=== PATIENT | female | born 1995 | race Caucasian/White ===

== ENCOUNTER 2017-02-03 09:54 | Emergency (ER) | payer OTHER ==
[2017-02-03 10:27] VITALS: BP 124/73
--- NOTE | 2017-02-03 10:52 | UC ---
UC General HPI - HPI Summary HPI Summary: Pt presents to urgent care with her BF mom with whom she lives. Pt with multiple complaints. PT states has been getting frontal JURADO x 2 months, but now with increased frequency. Pt reports increased urinary frequency and bloating. Pt reports fatigue and mild low back pain. Pt concerned she may be - is sexually active and has implenon placed 2 years ago. No fevers, chills, rash. No cp, sob, abd pain. No nausea, vomiting. Pt with intermittent diarrhea. No blood, no black No vaginal discharge. Occasional bloody spotting - since Implenon. Pt has been taking Naproxyn for JURADO with good relief. Pt denies trauma. No ear, throat or sinus pain. Pt states saw PWP in October for annual exam. Pt has not been back since symptoms have been developing over past 1-2 months. No tck exposure. No others with same sx. Has not extablished with local shipyard helper Pt does not has been cutting back on caffeine over last few months Does not work with chemicals Pt's medications reviewed at this visit - History of Current Complaint Chief Complaint: UCAbdominalPain Stated Complaint: HEADACHE, BURNING URINATION AND ABDOMINAL PAIN Time Seen by Provider: 02/03/17 10:21 Hx Obtained From: Patient, Family/Chauffeur Hx Last Menstrual Period: 01/19/17 Onset/Duration: Gradual Onset Onset Severity: Mild Current Severity: None Associated Signs & Symptoms: Positive: Diarrhea. Negative: Cough, Chest Pain, Decreased Responsiveness, Dizziness, Dysuria, Decreased Oral Intake - Allergy/Home Medications Allergies/Adverse Reactions: Allergies Allergy/AdvReac Type Severity Reaction Status Date / Time No Known Allergies Allergy Verified 02/03/17 10:27 Home Medications: Home Medications NK [No Home Medications Reported] 02/03/17 [History Confirmed 02/03/17] PMH/Surg Hx/FS Hx/Imm Hx Previously Healthy: Yes - Surgical History Surgical History: Yes Surgery Procedure, Year, and Place: right shoulder x2 - Family History Known Family History: Positive: Other - breast and gastric CA - Social History Occupation: Employed Part-time Lives: With Family Alcohol Use: Rare Substance Use Type: None Smoking Status (MU): Never Smoked Tobacco Review of Systems Constitutional: Fatigue Skin: Negative Eyes: Negative ENT: Negative Respiratory: Negative Cardiovascular: Negative Gastrointestinal: Abdominal Pain - bloating Genitourinary: Frequency Motor: Other - back pain Neurovascular: Negative Musculoskeletal: Negative Neurological: Headache Psychological: Negative All Other Systems Reviewed And Are Negative: Yes Physical Exam Triage Information Reviewed: Yes Appearance: Well-Appearing, No Pain Distress, Well-Nourished Vital Signs: Initial Vital Signs Temp 98.5 F 02/03/17 10:17 Pulse 78 02/03/17 10:17 Resp 20 02/03/17 10:17 BP 124/73 02/03/17 10:17 Pulse Ox 100 02/03/17 10:17 Eye Exam: Normal Eyes: Positive: Conjunctiva Clear ENT Exam: Normal ENT: Positive: Normal ENT inspection, Hearing grossly normal, Pharynx normal, TMs normal Dental Exam: Normal Neck exam: Normal Neck: Positive: Supple, Nontender, No Lymphadenopathy, Other: - no thyromegaly Respiratory Exam: Normal Respiratory: Positive: Chest non-tender, Lungs clear, Normal breath sounds Cardiovascular Exam: Normal Cardiovascular: Positive: RRR, No Murmur, Pulses Normal Abdominal Exam: Normal Abdomen Description: Positive: Nontender, No Organomegaly, Soft, Other: - No cva b/l Bowel Sounds: Positive: Present Musculoskeletal Exam: Normal Musculoskeletal: Positive: Strength Intact Neurological Exam: Normal Neurological: Positive: Alert, Muscle Tone Normal, Other: - full AROm ext x 4 + gross b/l sensation x 4 Psychological Exam: Normal Psychological: Positive: Normal Response To Family Skin Exam: Normal Course/Dx - Course Course Of Treatment: Pt presents with multiple complaints - pt with intermittent JURADO, bloating, and urinary frequency. Pt concerned may be . urine and hcg unremarkable. I had a long discussion with pt regarding symptoms and limitations of urgent care. Pt with stable VS and non concerning exam. will order labs. f/u with pcp. referral to shipyard helper for reproductive health. return precautions. APAP with Naproxyn. hydration. pt and SO mom comfortable and in agreement with plan. questions answered - Differential Dx - Multi-Symptom Provider Diagnoses: fatigue. headache. urinary frequency Discharge - Discharge Plan Condition: Stable Disposition: HOME Patient Education Materials: Dehydration (ED), General Headache (ED), Fatigue ( ED) Referrals: Dwain Guerrero MD [Medical Doctor] - As Soon As Possible Clifton Gutierrez MD [Medical Doctor] - (Call to schedule a follow-up appointment) Additional Instructions: - stay well hydrated. Drink plenty of non-alcoholic, non-caffinated beverages - for every caffinated beverage, drink water - Okay to take Tylenol every 6 hours for pain - Okay to take Naproxyn OR ibuprofen (Motrin, Advil) every 6 hours for pain - Contact your primary doctor in [place] to schedule a follow-up appointment to review today's lab work and discuss your symptoms - You should establish with a shipyard helper doctor- you have been provided the name of the shipyard helper doctor industrial refrigeration mechanic today - call to schedule - Call your doctor or go to the emergency department with questions or concern -
[2017-02-03 16:10] LABS: Hematocrit 41 % (35-47); Hemoglobin 14.3 g/dl (12.0-16.0); Mean Corpuscular HGB Conc 35 g/dl (31-36); Mean Corpuscular Hemoglobin 29 pg (27-31); Mean Corpuscular Volume 85 fL (80-97); Mean Platelet Volume 9 um3 (7.4-10.4); Red Blood Count 4.87 10^6/ul (4.0-5.4); Red Cell Distribution Width 12 % (10.5-15); White Blood Count 7.8 10^3/ul (3.5-10.8)
[2017-02-03 16:30] LABS: Albumin 4.5 g/dL (3.2-5.2); BUN/Creatinine Ratio 17.1 (8-20); Calcium 9.9 mg/dL (8.6-10.3); EGFR African American 134.6 (>60); EGFR Non-African American 104.6 (>60); Globulin 2.9 g/dL (2-4); Potassium 4.3 mmol/L (3.5-5.0); TSH (Thyroid Stimulating Horm) 1.49 mcIU/mL (0.34-5.60); Total Bilirubin 0.6 mg/dL (0.2-1.0); Total Protein 7.4 g/dL (6.4-8.9)
--- NOTE | 2017-02-04 09:19 | ED ---
Progress - Progress Note Progress Note: CALL PATIENT. CBC/CMP HAVE NO ACUTE CHANGES. IF WORSE GO TO ED. Course/Dx - Course Course Of Treatment: Pt presents with multiple complaints - pt with intermittent JURADO, bloating, and urinary frequency. Pt concerned may be . urine and hcg unremarkable. I had a long discussion with pt regarding symptoms and limitations of urgent care. Pt with stable VS and non concerning exam. will order labs. f/u with pcp. referral to [facility] we[facility] for reproductive health. return precautions. APAP with Naproxyn. hydration. pt and SO mom comfortable and in agreement with plan. questions answered - Diagnoses Provider Diagnoses: Abdominal pain
== END 2017-02-03 11:23 | disposition home or self-care (01) ==
LOC: UCEAST 09:54
DX: R51 Headache (principal); R35.0 Frequency of micturition; R53.83 Other fatigue; Z32.02 Encounter for pregnancy test, result negative
CPT/HCPCS: 36415; 80053; 81003; 83735; 84443; 84702; 85025; 99202; G0463

== ENCOUNTER 2018-03-21 22:54 | Emergency (ER) | payer OTHER ==
[2018-03-22] MEDS ORDERED: Ketorolac INJ* 60 MG/2 ML VIAL IM ONE (01:32)
[2018-03-22] MEDS ORDERED: oxyCODONE/Acetamin 5/325 MG* TAB PO ONE (01:32)
--- NOTE | 2018-03-22 01:53 | ED ---
Lower Extremity - HPI Summary HPI Summary: A 22 y/o female presents to ED c/o right ankle pain reaching 7/10 in severity. As per triage, "Pt states horse fell on rt ankle". According to the patient, around 2100 she rolled her ankle. The pain shot op her left and hurts to touch. - History of Current Complaint Chief Complaint: EDExtremityLower Stated Complaint: RT ANKLE INJURY Time Seen by Provider: 03/22/18 01:21 Hx Obtained From: Patient Hx Last Menstrual Period: 01/19/17 Mechanism Of Injury: Twisted Onset of Pain: Post Accident Onset/Duration: Hours Severity Initially: Moderate Severity Currently: Moderate Pain Intensity: 7 Pain Scale Used: 0-10 Numeric Timing: Constant Location: Is Discrete @ - Right ankle/foot Associated Signs And Symptoms: Positive: Negative Aggravating Factor(s): Movement Alleviating Factor(s): Nothing Able to Bear Weight: No - Allergies/Home Medications Allergies/Adverse Reactions: Allergies Allergy/AdvReac Type Severity Reaction Status Date / Time No Known Allergies Allergy Verified 02/03/17 10:27 PMH/Surg Hx/FS Hx/Imm Hx Endocrine/Hematology History: Denies: Hx Diabetes Cardiovascular History: Denies: Hx Hypertension Respiratory History: Denies: Hx Asthma - Surgical History Surgery Procedure, Year, and Place: right shoulder x2 Infectious Disease History: No Infectious Disease History: Reports: Hx of Known/Suspected MRSA Denies: Traveled Outside the [place] in Last 30 Days - Family History Known Family History: Positive: Other - breast and gastric CA, kidney cancer - Social History Alcohol Use: Rare Substance Use Type: Reports: None Smoking Status (MU): Never Smoked Tobacco Review of Systems Negative: Fever Positive: Other - POSITIVE: Left ankle and foot pain All Other Systems Reviewed And Are Negative: Yes Physical Exam - Summary Physical Exam Summary: VITAL SIGNS: Reviewed. GENERAL: Patient is a well-developed and nourished female who is lying comfortable in the stretcher. Patient is not in any acute respiratory distress. HEAD AND FACE: No signs of trauma. No ecchymosis, hematomas or skull depressions. No sinus tenderness. EYES: PERRLA, EOMI x 2, No injected conjunctiva, no nystagmus. EARS: Hearing grossly intact. Ear canals and tympanic membranes are within normal limits. MOUTH: Oropharynx within normal limits. NECK: Supple, trachea is midline, no adenopathy, no JVD, no carotid bruit, no c- spine tenderness, neck with full ROM. CHEST: Symmetric, no tenderness at palpation LUNGS: Clear to auscultation bilaterally. No wheezing or crackles. CVS: Regular rate and rhythm, S1 and S2 present, no murmurs or gallops appreciated. ABDOMEN: Soft, non-tender. No signs of distention. No rebound no guarding, and no masses palpated. Bowel sounds are normal. EXTREMITIES: FROM in all major joints, no edema, no cyanosis or clubbing. Tenderness of the left foot and left ankle. ROM is secondary to pain. NV intact. NEURO: Alert and oriented x 3. No acute neurological deficits. Speech is normal and follows commands. SKIN: Dry and warm Triage Information Reviewed: Yes Vital Signs On Initial Exam: Initial Vitals Temp Pulse Resp BP Pulse Ox 98.9 F 85 15 119/86 100 03/21/18 23:02 03/21/18 23:02 03/21/18 23:02 03/21/18 23:02 03/21/18 23:02 Vital Signs Reviewed: Yes Procedures - Splinting Right Lower Extremity Location: Applied to R. foot extending from R. foot to proximal leg, Below knee Hand-Made Type: orthoglass Splint: posterior walking Pre-Proc Neuro Vasc Exam: normal Post-Proc Neuro Vasc Exam: normal Diagnostics - Vital Signs Vital Signs Temp Pulse Resp BP Pulse Ox 03/22/18 01:47 16 03/21/18 23:02 98.9 F 85 15 119/86 100 - Laboratory Lab Statement: Any lab studies that have been ordered have been reviewed, and results considered in the medical decision making process. - Radiology ANKLE XR Radiology Interpretation Completed By: ED Physician - Negative. Pending official report. FOOT XR Radiology Interpretation Completed By: ED Physician - No fracture, however, disruption of the ankle mortise. Pending official report. Lower Extremity Course/Dx - Course Course Of Treatment: A 22 y/o female presents to ED c/o right ankle pain reaching 7/10 in severity. A Foot XR revealed to be negative. An Ankle XR revealed no fracture, however, disruption of the ankle mortise. In the ED course , the patient recieved Percocet and Toradol. Patient was splinted. NV exam was intact pre and post. Patient will be discharged with a diagnosis of ankle dislocation. Patient is to follow up with orthopedics today. Patient was instructors for no weight bearing. Patient is agreeable with this plan. - Diagnoses Provider Diagnoses: Ankle dislocation Discharge - Sign-Out/Discharge Documenting (check all that apply): Patient Departure - DISCHARGE - Discharge Plan Condition: Stable Disposition: HOME Patient Education Materials: Ankle Dislocation (ED) Referrals: Lucero So MD [Medical Doctor] - As Soon As Possible Additional Instructions: FOLLOW UP WITH ORTHOPEDICS TODAY. NO WEAR BEARING. RETURN TO ED FOR ANY NEW OR WORSENING SYMPTOMS. - Attestation Statements Document Initiated by Scribe: Yes Documenting Scribe: Hernandez Edmond Provider For Whom Scribe is Documenting (Include Credential): Robb Do MD Scribe Attestation: Hernandez Barney, scribed for Robb Do MD on 03/22/18 at 0236.
[2018-03-22 03:21] VITALS: BP 111/53
--- NOTE | 2018-03-22 08:03 | RAD ---
Indication: RIGHT ankle pain following injury. Comparison: March 22, 2018 RIGHT foot exam. Technique: AP, mortise, and lateral views RIGHT ankle. REPORT AND IMPRESSION: #. Normal articular alignment. No cortical disruption or suspicious trabecular irregularity to suggest fracture. Mild soft tissue swelling over the lateral malleolus. R0
--- NOTE | 2018-03-22 08:04 | RAD ---
Indication: RIGHT foot and ankle pain following injury. Comparison: March 21, 2018 RIGHT ankle exam. Technique: AP, lateral, and oblique views RIGHT foot. REPORT AND IMPRESSION: #. No cortical disruption or suspicious trabecular irregularity to suggest fracture. Small os tibiale externum ossicle noted. Normal articular alignment. Mild lateral soft tissue swelling at the ankle and hindfoot. R0
== END 2018-03-22 03:22 | disposition home or self-care (01) ==
LOC: ED 22:54
DX: S93.04XA Dislocation of right ankle joint, initial encounter (principal); M25.571 Pain in right ankle and joints of right foot; M79.672 Pain in left foot; W22.8XXA Striking against or struck by other objects, initial encounter; Y92.9 Unspecified place or not applicable
CPT/HCPCS: 96372; 99282; A9270-GY; J1885